=== PATIENT | female | born 1995 | race Caucasian/White ===

== ENCOUNTER 2017-09-21 12:16 | Emergency (ER) | payer MEDICAID ==
--- NOTE | 2017-09-21 12:48 | EDM.PDOC ---
ED HPI GENERAL MEDICAL PROBLEM - General Chief Complaint: ENT Problem Stated Complaint: SORE THROAT; HEADACHE Time Seen by Provider: 09/21/17 12:35 Source of Information: Reports: Patient, RN History Limitations: Reports: No Limitations - History of Present Illness INITIAL COMMENTS - FREE TEXT/NARRATIVE: 22 yo female presents with onset early today of sore throat and runny nose. No fever or rash. Has a ESPINOSA that did not go away with 1 Excedrin tablet. Onset: Today Onset Date: 09/21/17 Onset Time: 07:00 Duration: Hour(s): Location: Reports: Neck (throat) Quality: Reports: Other (pain with swallowing) Severity: Mild Improves with: Reports: None Worsens with: Reports: Other (swallowing) Context: Reports: Other (unknown) Associated Symptoms: Denies: Cough, Fever/Chills, Rash, Shortness of Breath Treatments LIFTER: Reports: Other (see below) (Excedrin 1 tablet) Throat Pain Score (Numeric/FACES): 10 - Related Data Allergies Allergy/AdvReac Type Severity Reaction Status Date / Time No Known Allergies Allergy Verified 09/21/17 12:37 Home Meds: Home Meds Amphetamine-Dextroamphet 30 mg PO DAILY 09/21/17 [History] Liraglutide [Victoza] 0.6 mg SUBCUT DAILY 09/21/17 [History] Penicillin V Potassium [IJD: Penicillin V Potassium] 500 mg PO .EVERY 6 HOURS # 40 tab 09/21/17 [Rx] Sertraline HCl [Sertraline HCl] 150 mg PO DAILY 09/21/17 [History] Past Medical History HEENT History: Reports: Impaired Vision Respiratory History: Reports: Asthma Neurological History: Reports: Migraines Psychiatric History: Reports: ADHD Endocrine/Metabolic History: Reports: Diabetes, Type II Social & Family History - Tobacco Use Smoking Status *Q: Never Smoker - Recreational Drug Use Recreational Drug Use: No ED ROS ENT - Review of Systems Review Of Systems: See Below Constitutional: Reports: No Symptoms HEENT: Reports: Rhinitis, Throat Pain. Denies: Ear Pain, Eye Discharge, Nose Pain, Throat Swelling Respiratory: Reports: No Symptoms Cardiovascular: Reports: No Symptoms Skin: Reports: No Symptoms ED EXAM, ENT - Physical Exam Exam: See Below Exam Limited By: No Limitations General Appearance: Alert, WD/WN, No Apparent Distress, Obese Eye Exam: Bilateral Eye: Normal Inspection Ears: Normal External Exam, Normal Canal, Hearing Grossly Normal, Normal TMs Nose: Clear Rhinorrhea Mouth/Throat: Normal Inspection, Normal Lips, Normal Oropharynx Head: Atraumatic, Normocephalic Neck: Normal Inspection, Supple, Non-Tender Respiratory/Chest: No Respiratory Distress, Lungs Clear, Normal Breath Sounds, No Accessory Muscle Use Cardiovascular: Regular Rate, Rhythm Extremities: Normal Inspection Neurological: Alert, Oriented, CN II-XII Intact, Normal Cognition, No Motor/ Sensory Deficits Psychiatric: Normal Affect, Normal Mood Skin: Warm, Dry, Intact, Normal Color, No Rash Lymphatic: No Adenopathy Course - Vital Signs Last Recorded V/S: Last Vital Signs Temp 37.0 C 09/21/17 12:36 Pulse 106 H 09/21/17 12:36 Resp 20 09/21/17 12:36 BP 136/71 09/21/17 12:36 Pulse Ox 99 09/21/17 12:36 Departure - Departure Time of Disposition: 13:23 Disposition: Home, Self-Care 01 Condition: Good Clinical Impression: Strep pharyngitis - Discharge Information Prescriptions: Penicillin V Potassium [IJD: Penicillin V Potassium] 500 mg PO .EVERY 6 HOURS # 40 tab Referrals: Ariane Spain PA [Primary Care Provider] - Forms: ED Department Discharge Additional Instructions: Take Penicillin as directed. Recheck with your doctor as needed. Take acetaminophen 1000 mg every 6 hrs for pain relief.
== END 2017-09-21 13:27 | disposition home or self-care (01) ==
LOC: JP.ED 12:16
DX: J02.0 Streptococcal pharyngitis (principal); E11.9 Type 2 diabetes mellitus without complications; Z79.899 Other long term (current) drug therapy
CPT/HCPCS: 87430; 99283

== ENCOUNTER 2018-01-07 06:14 | Day surgery (SDC) | payer MEDICAID ==
[2018-01-07] MEDS ORDERED: Lactated Ringers 1,000 ML IV SCH (07:00)
[2018-01-07] MEDS ORDERED: Propofol 200 MG/20 ML SDV ONE (07:28)
[2018-01-07] MEDS ORDERED: Midazolam 1 MG/ML 2 ML SDV ONE (07:28)
[2018-01-07] MEDS ORDERED: fentaNYL 100 MCG/2 ML SDV ONE (07:28)
--- NOTE | 2018-01-07 12:57 | OR ---
DATE OF PROCEDURE: 01/07/2018 PREOPERATIVE DIAGNOSIS: Dysphagia. POSTOPERATIVE DIAGNOSES: Dysphagia, etiology unknown, possible spasm; prominent ampulla of Vater. PROCEDURES: Esophagogastroduodenoscopy with biopsy of ampulla of Vater. ANESTHESIA: IV anesthesia with monitored anesthesia care. SURGEON: Christian Nj MD INDICATION: This 22-year-old white female is referred for upper endoscopy because of dysphagia. She says that food goes down, gets stuck, and she has to vomit it out. I counseled her for upper endoscopy with possible biopsy, including risks and alternatives, and she gave her informed consent to proceed. DESCRIPTION OF PROCEDURE: The patient was placed in the left lateral decubitus position. IV anesthesia was administered by the Anesthesia Service. Time-out was held. The flexible video Olympus upper endoscope was passed through her mouth, down her esophagus, and into her stomach. The scope was easily passed through the pylorus, into the duodenum, reaching its third portion. The scope was then slowly withdrawn examining the mucosa throughout. The ampulla of Vater appeared prominent. We biopsied this. The scope was brought back up through the pylorus and into the antrum. The antrum appeared unremarkable. The scope was retroflexed. The proximal stomach appeared unremarkable. The scope was straightened and brought up to the GE junction. The mucosa appeared unremarkable. There was no obvious stricture or anything like that, but it did appear to have some spasm as the scope was passed into the stomach. The scope was then brought up through the remainder of the esophagus, which otherwise appeared unremarkable, and was removed. She tolerated the procedure well. Christian Nj MD /[id number] MTDD
== END 2018-01-07 09:16 | disposition home or self-care (01) ==
LOC: JP.SDS 06:14
PROVIDERS: ATTEND Surgery
PROC: 0DB98ZX Excision of Duodenum, Via Natural or Artificial Opening Endoscopic, Diagnostic (ICD-10-PCS; principal; 2018-01-07)
DX: R13.10 Dysphagia, unspecified (principal); Z88.8 Allergy status to other drugs, medicaments and biological substances
CPT/HCPCS: 43239; J2250; J2704; J3010; J7120

== ENCOUNTER 2020-04-20 05:28 | Inpatient (IN) | payer MEDICAID ==
[2020-04-20] MEDS ORDERED: Lactated Ringers 1,000 ML IV SCH (06:30)
[2020-04-20] MEDS ORDERED: Oxytocin 10 Units/1 ML SDV ONE ×2 (06:39→06:58)
[2020-04-20] MEDS ORDERED: cefOXitin 1 GM Vial ONE (06:39)
[2020-04-20] MEDS ORDERED: ePHEDrine 50 MG/ML SDV ONE (06:58)
[2020-04-20] MEDS ORDERED: cefOXitin 2 GM Vial ONE (06:58)
[2020-04-20] MEDS ORDERED: Lactated Ringers 1,000 ML ONE ×2 (08:33→08:34)
[2020-04-20] MEDS ORDERED: fentaNYL 250 MCG/5 ML SDV ONE (08:39)
[2020-04-20] MEDS: Ketoconazole 2% Crm 30 GM Tube TOP SCH ×2 (09:15→20:37)
[2020-04-20] MEDS ORDERED: HYDROmorphone/Normal Saline 15 MG/30 ML PCA IV PRN (09:36)
[2020-04-20] MEDS ORDERED: Ondansetron 4 MG/2 ML SDV IVPUSH PRN (10:00)
[2020-04-20] MEDS ORDERED: Naloxone 0.4 MG/ML SDV IV PRN (10:00)
[2020-04-20] MEDS ORDERED: hydrOXYzine HCL 100 MG/2 ML SDV IM PRN (10:00)
[2020-04-20] MEDS: Dextrose 5%-Lactated Ringers 1,000 ML IV SCH ×2 (13:54→21:14)
[2020-04-20] MEDS: Sertraline 50 MG Tab PO SCH (13:58)
[2020-04-20] MEDS: Acetaminophen 500 MG Tab PO SCH ×3 (14:48→22:51)
[2020-04-20] MEDS: cefOXitin 2 GM in Sodium Chloride 0.9% 50 ML IV SCH ×2 (14:48→20:36)
[2020-04-20] MEDS: Ibuprofen 600 MG Tab PO SCH ×3 (14:48→22:50)
[2020-04-20] MEDS: hydrOXYzine HCl 25 MG Tab PO PRN (17:53)
[2020-04-21] MEDS: cefOXitin 2 GM in Sodium Chloride 0.9% 50 ML IV SCH ×2 (02:06→09:17)
[2020-04-21] MEDS: Acetaminophen 500 MG Tab PO SCH ×4 (05:25→22:13)
[2020-04-21] MEDS: Ibuprofen 600 MG Tab PO SCH ×4 (05:25→22:13)
[2020-04-21] MEDS: Sertraline 50 MG Tab PO SCH (08:23)
[2020-04-21] MEDS: Ketoconazole 2% Crm 30 GM Tube TOP SCH ×2 (08:23→22:13)
[2020-04-21] MEDS: Bisacodyl 5 MG Tab PO SCH ×2 (09:20→22:12)
[2020-04-21] MEDS: Docusate Sodium 100 MG Cap PO SCH ×2 (09:20→22:13)
[2020-04-21] MEDS: HYDROmorphone 2 MG Tab PO PRN ×4 (09:54→22:17)
--- NOTE | 2020-04-21 15:33 | PN ---
DATE OF SERVICE: 04/21/2020 SUBJECTIVE: Silvana is postoperative day 1. She states her pain is controlled. She has been up, ambulating. Oral intake 10 to 20, urine output 24 to 25 via Montgomery catheter. REVIEW OF SYSTEMS: Remainder of review of systems negative for any pertinent positives and negatives. OBJECTIVE: GENERAL: Silvana Mcneil is a 24-year-old female. She is alert and orientated. VITAL SIGNS: TPR at 0700 is 96.5, 94, 18, blood pressure 111/78. HEENT: Negative. NECK: Supple. HEART: Regular rate and rhythm. LUNGS: Clear. ABDOMEN: Dressings dry and intact. Abdominal binder is on. EXTREMITIES: Without peripheral edema. ASSESSMENT: 1. Repeat , removal of cystic lesion of left lateral aspect of the uterus. 2. Postoperative diagnoses: Term with history of previous and cystic lesion, left lateral aspect of uterus. Date: 04/20/2020. Surgeon: Jude Tamez MD. PLAN: 1. Discontinue Montgomery catheter. 2. Saline lock IV. 3. Discontinue continuous pulse ox. 4. Discontinue LIFE SCIENCE TECHNICIAN. 5. Dilaudid 2 to 4 mg every 4 hours p.r.n. pain. 6. Dulcolax 10 mg p.o. b.i.d. scheduled. 7. Colace 100 mg p.o. b.i.d. scheduled. 8. Continue use of incentive spirometer. 9. We will evaluate p.r.n. or in a.m. Kyleigh Sanders PA-C /[id number]
[2020-04-21] MEDS: hydrOXYzine HCl 25 MG Tab PO PRN (15:49)
[2020-04-21] MEDS ORDERED: Magnesium Hydroxide 400 MG/5 ML Susp 30 ML Cup PO ONE (17:03)
[2020-04-22] MEDS: Acetaminophen 500 MG Tab PO SCH ×2 (04:50→09:55)
[2020-04-22] MEDS: Ibuprofen 600 MG Tab PO SCH ×2 (04:50→09:55)
[2020-04-22] MEDS: Ketoconazole 2% Crm 30 GM Tube TOP SCH (09:55)
[2020-04-22] MEDS: Sertraline 50 MG Tab PO SCH (09:55)
[2020-04-22] MEDS: Docusate Sodium 100 MG Cap PO SCH (09:56)
[2020-04-22] MEDS: Bisacodyl 5 MG Tab PO SCH (09:56)
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
--- NOTE | 2020-04-25 16:23 | OR ---
DATE OF PROCEDURE: 04/20/2020 SURGEON: Jude Tamez MD PREOPERATIVE DIAGNOSIS: Term with history of previous section. POSTOPERATIVE DIAGNOSES: 1. Term with history of previous section. 2. Cystic lesion, left lateral aspect of uterine peritoneal surface. OPERATIVE PROCEDURE: 1. Repeat section (00734). 2. Excision of cystic peritoneal lesion of left lateral aspect of uterus (98987). ANESTHESIA: Spinal. INDICATIONS: A 24-year-old female presenting with a scheduled repeat section. The plan is to proceed with a repeat section. Potential risks including bleeding, infection, injury to mother and/or baby were all reviewed, and the patient wishes to proceed. The assistant operations manager in this case was Jessi Ho CNM. DETAILS OF PROCEDURE: The patient was taken to the operating room, placed in a supine position. After a spinal anesthetic had been placed and a roll positioned underneath the right hip, the abdomen was prepped and draped. Montgomery catheter was inserted. The previous transverse Pfannenstiel incision was then reused and carried down through the skin and subcutaneous tissue and through the rectus sheath fascia. Subrectus sheath flaps were then raised superiorly and inferiorly and the midline peritoneum divided. The peritoneal reflection of the bladder on the uterus was then divided and the bladder reflected downward. A transverse lower uterine segment incision was made and a viable male was delivered through vertex presentation. The cord was clamped and cut and routine care given off the field per nurse director agricultural services, Jessi Ho. The patient was given IV and intrauterine oxytocin and IV cefoxitin. Good uterine contractions were noted and placenta with membranes was delivered without difficulty. The uterus was then closed with 2 layers of #1 Vicryl stitch as was the peritoneal reflection of the bladder onto the uterus. On the left lateral aspect of the uterus somewhat adjacent to the uterine tube, a 1 cm cystic lesion was present. This might be a cyst of Morgagni, but it was felt best to re- excise for definitive histologic evaluation. This was excised electrocautery and delivered from the field. This measured around 1 cm in diameter. At this point, the posterior peritoneum was approximated with #2 Vicryl stitch as was the anterior rectus sheath. Subcutaneous tissue was approximated with some 3-0 Vicryl stitch and the skin with a 4-0 Vicryl subcuticular stitch along with surgical glue. The patient was taken to the recovery room in satisfactory condition. Nurse director agricultural services, Jessi Ho played an essential role in assisting in this case and her assistance was required as per the standard scale of ACOG. Jude Tamez MD /[id number]
== END 2020-04-22 13:00 | disposition home or self-care (01) | DRG 788 ==
LOC: JP.SDS 05:28 → JP.MS 08:38
PROVIDERS: ADMIT Advanced Practice Midwife; ATTEND Surgery
PROC: 10D00Z1 Extraction of Products of Conception, Low, Open Approach (ICD-10-PCS; principal; 2020-04-20)
PROC: 0UB90ZZ Excision of Uterus, Open Approach (ICD-10-PCS; 2020-04-20)
DX: O34.211 Maternal care for low transverse scar from previous cesarean delivery (principal); Z37.0 Single live birth; Z3A.37 37 weeks gestation of pregnancy
CPT/HCPCS: 36415; 51701; 59409; 80305-QW; 85027; 86850; 86900; 86901; 94762; A9270-GY; J0694; J1170; J2590; J3010; J7120; J7121